=== PATIENT | female | born 1950 | race Caucasian/White ===

== ENCOUNTER 2016-08-11 12:33 | Inpatient (IN) | payer OTHER ==
[2016-08-11 12:57] LABS: AUTOMATED BASOPHIL 1.1 % (0-2); AUTOMATED EOSINOPHIL 0.9 % (0-5); AUTOMATED LYMPH 9.2 % (17-44); AUTOMATED MONOCYTE 6.7 % (3-10); AUTOMATED NEUTROPHIL 82.1 % (45-76); MPV 7.7 fL (7.4-10.4)
[2016-08-11 13:07] LABS: BLOOD UREA NITROGEN 20 MG/DL (7-17); CALC CORRECTED 9.6 MG/DL (8.4-10.2); CALCIUM 9.3 MG/DL (8.4-10.2); CALCULATED OSMOLALITY 268 MOs/Kg (270-290); CHLORIDE 96 mEq/L (98-107); GLUCOSE 120 MG/DL (70-99); SODIUM LEVEL 137 mEq/L (137-146); TOTAL PROTEIN 7.7 G/DL (6.3-8.2)
[2016-08-11] MEDS ORDERED: Albuterol/Ipratropium Neb 3 ML NEB NEB ONE (13:32)
--- NOTE | 2016-08-11 13:37 | EDPRACDOC ---
- General Information Chief Complaint: Dyspnea/Resp distress Stated Complaint: SENT BY DR RODAS Time Seen by Provider: 08/11/16 13:32 Information Source: Patient Mode Of Arrival: Car Home Medications: Home Medications Aspirin [Aspirin EC] 325 mg PO DAILY 08/11/16 Duloxetine [Cymbalta] 90 mg PO DAILY 08/11/16 Folic Acid 1 mg PO DAILY 08/11/16 Hydroxychloroquine Sulfate 200 mg PO BID 08/11/16 Methotrexate Sodium [Methotrexate] 7 tabs PO .WEEKLY 08/11/16 Telmisartan/Hydrochlorothiazid [Micardis Hct 80-12.5 mg Tablet] 1 each PO DAILY 08/11/16 Allergies/Adverse Reactions: Allergies Allergy/AdvReac Type Severity Reaction Status Date / Time cefaclor [From Ceclor] Allergy Hives* Verified 08/11/16 17:40 phenazopyridine Allergy Rash-Genera Verified 08/11/16 17:40 [From Pyridium] lized - History of Present Illness HPI: SENT FROM DR ÁLVAREZ OFFICE FOR SOB-COUGH, WHEEZE, RESPIRATORY FAILURE. , PT TREATED THERE WITH NEBS. OXYGEN SATS 84%, LINGULAR INFILTRATE ON CXR. CONCERN THAT MAY NEED ADMITTED IF BREATHING DOES NOT IMPROVE. COUGH, SOB MOSTLY WITH EXERTION X 3 WEEKS, WORSE SINCE SUNDAY. - Treatment Prior to ED Arrival Reported Medications/Treatment POLL CLERK Treated With Medication POLL CLERK YES Medications POLL CLERK (Medication/ ALB NEB X 2-POLL CLERK, DR ÁLVAREZ OFFICE Dose/Time) ED Past Medical History - Patient Medical History Cardiac History: Reports: Hypertension Systemic History: Reports: Cancer (SKIN) EDM Review of Systems - Review of Systems ROS Negative Except as Marked: Yes All systems reviewed and were negative except as marked Constitutional: Weakness Eyes: No Symptoms Reported Respiratory: Cough, Shortness of Breath Cardiovascular: No Symptoms Reported Gastrointestinal: No Symptoms Reported Genitourinary: No Symptoms Reported Neurological: No Symptoms Reported Musculoskeletal: No Symptoms Reported Integumentary: No Symptoms Reported Allergic/Immunologic: No Symptoms Reported Hematologic: No Symptoms Reported Endocrine: No Symptoms Reported - Physical Exam Constitutional: Alert (Awake), No apparent distress Oriented to: Time, Person, Place Last recorded Vital Signs: Last Vital Signs Temp 98.7 F 08/11/16 12:38 Pulse 94 08/11/16 12:38 Resp 24 08/11/16 12:38 BP 165/74 08/11/16 12:38 Pulse Ox 93 08/11/16 12:38 Oxygen Pulse Oxygen Saturation 93 O2 Device Oxygen Flow Rate Fraction of Inspired Oxygen ( FIO2) - HEENT Head: Normal ( normocephalic) Eye Exam: Normal (PERRL, EOMI, Sclera white) Oropharynx: Normal (Pharynx:Moist without exudate,Gums-no swelling) Nose: No Symptoms Reported (septum midline) Neck: Normal (FROM, trachea at midline) - Respiratory/Cardiovascular Respiratory: Wheezes (B/L) Cardiovascular: Normal (RRR without murmur, gallop or rub) - GI Auscultation: Normal (NABS) Palpation: Normal (Soft,No rebound or guarding, non distended) Tenderness: Non tender Hendrickson's Sign: Negative - Musculoskeletal Back: Normal (Non-Tender) Extremities: Normal (Normal tone, Pulses 2+ No cyanosis or edema, FROM) - Integumentary Skin: Normal, Warm, Dry Lymphatics: Normal (no adenopathy) - Neurologic Memory Impaired: Normal Motor Function: Normal (Normal tone, Pulses 2+ No cyanosis or edema, FROM) Cranial Nerve: Normal (CN II-X11 intact sensation, strength 5/5) Cerebellar: Normal Mood Description: Normal Perception: Normal ED SOB MDM - Results Result Diagrams: 08/12/16 06:54 08/12/16 06:54 Results: WBC 14.5 xk/uL (3.8-10.8) H 08/11/16 12:42 RBC 4.14 xM/uL (4.20-5.40) L 08/11/16 12:42 Hgb 12.5 g/dL (12.0-16.0) 08/11/16 12:42 Hct 38.0 % (36-47) 08/11/16 12:42 MCV 92 fL (81-99) 08/11/16 12:42 MCH 30.2 pg (27-32) 08/11/16 12:42 MCHC 32.8 g/dl (33-36) L 08/11/16 12:42 RDW 15.8 % (11.5-14.5) H 08/11/16 12:42 Plt Count 485 xk/uL (130-400) H 08/11/16 12:42 MPV 7.7 fL (7.4-10.4) 08/11/16 12:42 Neut % (Auto) 82.1 % (45-76) H 08/11/16 12:42 Lymph % (Auto) 9.2 % (17-44) L 08/11/16 12:42 [place] % (Auto) 6.7 % (3-10) 08/11/16 12:42 Eos % (Auto) 0.9 % (0-5) 08/11/16 12:42 Baso % (Auto) 1.1 % (0-2) 08/11/16 12:42 Absolute Neuts (auto) 11.89 xk/uL (1.7-8.2) H 08/11/16 12:42 Absolute Lymphs (auto) 1.31 xk/uL (0.65-4.75) 08/11/16 12:42 Sodium 137 mEq/L (137-146) 08/11/16 12:42 Potassium 3.6 mEq/L (3.5-5.1) 08/11/16 12:42 Chloride 96 mEq/L (98-107) L 08/11/16 12:42 Carbon Dioxide 30 mMOL/L (22-33) 08/11/16 12:42 Anion Gap 15 mEq/L (8-16) 08/11/16 12:42 BUN 20 MG/DL (7-17) H 08/11/16 12:42 Creatinine 0.90 MG/DL (0.52-1.04) 08/11/16 12:42 Estimated GFR (MDRD) > 60 mL/min (>=60) 08/11/16 12:42 Glucose 120 MG/DL (70-99) H 08/11/16 12:42 Calculated Osmolality 268 MOs/Kg (270-290) L 08/11/16 12:42 Calcium 9.3 MG/DL (8.4-10.2) 08/11/16 12:42 Corrected Calcium 9.6 MG/DL (8.4-10.2) 08/11/16 12:42 Total Bilirubin 1.1 MG/DL (0.2-1.3) 08/11/16 12:42 AST 34 IU/L (14-36) 08/11/16 12:42 ALT 35 IU/L (9-52) 08/11/16 12:42 Alkaline Phosphatase 102 IU/L (55-165) 08/11/16 12:42 Total Protein 7.7 G/DL (6.3-8.2) 08/11/16 12:42 Albumin 3.7 G/DL (3.5-5.0) 08/11/16 12:42 Lab Results 08/11/16 08/11/16 12:42 12:42 WBC 14.5 H RBC 4.14 L Hgb 12.5 Hct 38.0 MCV 92 MCH 30.2 MCHC 32.8 L RDW 15.8 H Plt Count 485 H MPV 7.7 Neut % (Auto) 82.1 H Lymph % (Auto) 9.2 L [place] % (Auto) 6.7 Eos % (Auto) 0.9 Baso % (Auto) 1.1 Absolute Neuts (auto) 11.89 H Absolute Lymphs (auto) 1.31 Sodium 137 Potassium 3.6 Chloride 96 L Carbon Dioxide 30 Anion Gap 15 BUN 20 H Creatinine 0.90 Estimated GFR (MDRD) > 60 Glucose 120 H Calculated Osmolality 268 L Calcium 9.3 Corrected Calcium 9.6 Total Bilirubin 1.1 AST 34 ALT 35 Alkaline Phosphatase 102 Total Protein 7.7 Albumin 3.7 - Departure Yes I personally saw and evaluated the patient. Disposition: Admit IP To This Hospital Condition: Stable Final Diagnosis: Pneumonia, Acute respiratory failure with hypoxia, Lingular pneumonia Decision to Admit Time: 14:46 Decision to admit date: 08/13/16 Decision to admit: from ED - Physician Consulted Hospitalist Time Called: 14:46 Provider Called: Lj Cordova Time Counting Machine Operator Returned Call: 14:46
[2016-08-11 13:59] LABS: ABG Draw Site Right Radial; ALLEN'S TEST PASS; BEb 4.1 (+/- 2); TCO2 29.8 MMOL/L (23-27)
[2016-08-11] MEDS ORDERED: Levofloxacin 750 mg/150 ml D5W 750 MG/150 ML RTU IV ONE (14:48)
--- NOTE | 2016-08-11 14:59 | DIRPT ---
CLINICAL DATA: Shortness of breath, cough EXAM: CHEST 2 VIEW COMPARISON: 08/11/2016 FINDINGS: Cardiomediastinal silhouette is stable. Dextroscoliosis mid thoracic spine again noted. Mild infrahilar bronchitic changes. Persistent infiltrate/ pneumonia in lingula and left base retrocardiac best seen on lateral view. IMPRESSION: Mild infrahilar bronchitic changes. Persistent infiltrate/ pneumonia in lingula and left base retrocardiac best seen on lateral view. Electronically Signed By: Omar Rasmussen M.D. On: 08/11/2016 14:57
[2016-08-11] MEDS ORDERED: IBUPROFEN 400 MG TAB PO PRN (16:23)
[2016-08-11] MEDS ORDERED: ONDANSETRON HCL 4 MG/2 ML VIAL IV PRN (16:23)
[2016-08-11] MEDS ORDERED: BISACODYL 5 MG TAB PO PRN (16:23)
[2016-08-11] MEDS ORDERED: PROMETHAZINE 25 MG/ML VIAL IV PRN (16:23)
[2016-08-11] MEDS ORDERED: TEMAZEPAM 15 MG CAP PO PRN (16:23)
[2016-08-11] MEDS ORDERED: Albuterol/Ipratropium Neb 3 ML NEB NEB PRN (16:23)
[2016-08-11] MEDS ORDERED: DOCUSATE-SENNA CONCENTRATE TAB PO PRN (16:23)
[2016-08-11] MEDS ORDERED: ACETAMINOPHEN 325 MG/TAB TABLET PO PRN (16:23)
[2016-08-11] MEDS ORDERED: SIMETHICONE 80 MG TAB PO PRN (16:23)
[2016-08-11] MEDS ORDERED: METHOTREXATE SODIUM PO SCH (16:30)
[2016-08-11] MEDS: NS 1,000 ML IV SCH (17:28)
[2016-08-11] MEDS ORDERED: Vaccine Screening Complete SCH (18:00)
[2016-08-11] MEDS: Albuterol/Ipratropium Neb 3 ML NEB NEB SCH (19:15)
[2016-08-11] MEDS: BUDESONIDE 0.25 MG NEB NEB SCH (19:17)
[2016-08-11] MEDS: TELMISARTAN 40 MG TAB PO SCH (19:21)
[2016-08-11] MEDS: DULOXETINE 30 MG CAP PO SCH (19:22)
[2016-08-11] MEDS: Aspirin (Orange Enteric Coated) 325 mg tab PO SCH (19:23)
[2016-08-11] MEDS: HYDROCHLOROTHIAZIDE 12.5 MG CAP PO SCH (19:24)
[2016-08-11] MEDS: FOLIC ACID 1 MG TAB PO SCH (19:24)
[2016-08-11] MEDS: HYDROXYCHLOROQUINE 200 MG TAB PO SCH (19:25)
[2016-08-11] MEDS: ENOXAPARIN 40 MG/0.4 ML PFS SQ SCH (20:01)
[2016-08-11] MEDS: METHOTREXATE SODIUM 2.5 MG TAB PO SCH (20:02)
[2016-08-12] MEDS: BENZONATATE 100 MG PERLES PO PRN ×2 (01:21→21:27)
[2016-08-12] MEDS: Albuterol/Ipratropium Neb 3 ML NEB NEB SCH ×4 (02:08→19:44)
[2016-08-12 07:29] LABS: AUTOMATED BASOPHIL 0.8 % (0-2); AUTOMATED EOSINOPHIL 1.5 % (0-5); AUTOMATED MONOCYTE 9.3 % (3-10); AUTOMATED NEUTROPHIL 75.4 % (45-76); MPV 7.7 fL (7.4-10.4)
[2016-08-12 08:11] LABS: BLOOD UREA NITROGEN 28 MG/DL (7-17); CALCULATED OSMOLALITY 272 MOs/Kg (270-290); CHLORIDE 98 mEq/L (98-107); GLUCOSE 101 MG/DL (70-99); SODIUM LEVEL 138 mEq/L (137-146)
[2016-08-12] MEDS: BUDESONIDE 0.25 MG NEB NEB SCH ×2 (08:22→19:43)
[2016-08-12] MEDS: FOLIC ACID 1 MG TAB PO SCH (08:42)
[2016-08-12] MEDS: Aspirin (Orange Enteric Coated) 325 mg tab PO SCH (08:42)
[2016-08-12] MEDS: HYDROXYCHLOROQUINE 200 MG TAB PO SCH ×2 (08:42→21:02)
[2016-08-12] MEDS: TELMISARTAN 40 MG TAB PO SCH (08:42)
[2016-08-12] MEDS: HYDROCHLOROTHIAZIDE 12.5 MG CAP PO SCH (08:42)
[2016-08-12] MEDS: DULOXETINE 30 MG CAP PO SCH (08:42)
[2016-08-12] MEDS: NS 1,000 ML IV SCH ×2 (13:42→13:56)
--- NOTE | 2016-08-12 14:59 | GENMEDPROG ---
Chief Complaint: Cough, pneumonia, hypoxia Subjective Note: Patient is feeling minimally better. She still has a very harsh cough. She did collect some sputum. She is short of breath moving around in her room. Current Medication List: Reviewed Currently: Reports: Cough, Wheezing, LIM, Tobacco Use/Hx, Ambulating (Minimally) . Denies: Nausea and Vomiting, Abdominal Pain, Fever/Chills DVT Prophylaxis: Yes - Physical Examination Vital Signs and I&O: Last Vital Signs Temp 98.3 F 08/12/16 14:00 Pulse 85 08/12/16 14:00 Resp 18 08/12/16 14:00 BP 120/60 08/12/16 14:00 Pulse Ox 92 08/12/16 14:00 Oxygen Pulse Oxygen Saturation 92 O2 Device Nasal Cannula Oxygen Flow Rate 2 Fraction of Inspired Oxygen ( FIO2) Intake & Output 08/09/16 08/10/16 08/11/16 08/12/16 23:59 23:59 23:59 23:59 Intake Total 470 1009 Output Total 200 700 Balance 270 309 Patient's weight 95.283 kg 96.218 kg General: Alert, Oriented x3, Cooperative, Mild distress (If speaking several sentences in a row) HEENT: Anicteric Sclera, Mucous membr. moist/pink Neck: Normal inspection, No Masses palpable Respiratory: Rhonchi (Faint rhonchi heard on the left), Wheezes, Excursion ( Decreased excursion but improved from yesterday) Cardiovascular: Regular rate and rhythm, No Gallops,Rubs/Murmurs, Good Pedal Pulses. negative: LE Edema GI: Soft, Non tender Extremities/Musculoskeletal: Normal pulses Neurological: Normal speech, Normal tone Psych/Mental Status: Appropriate, Normal Affect, Cooperative Lab/DI/Studies Reviewed: 08/12/16 06:54 08/12/16 06:54 Intake & Output 08/09/16 08/10/16 08/11/16 08/12/16 23:59 23:59 23:59 23:59 Intake Total 470 2007 Output Total 200 1100 Balance 270 907 Patient's weight 95.283 kg 96.218 kg - Assessment (1) Acute respiratory failure with hypoxia Acute J96.01 - ACUTE RESPIRATORY FAILURE WITH HYPOXIA Comment/Plan: Day 2 of IV Levaquin. Continue oxygen, inhaled steroids and inhaled bronchodilators. Will increase ambulation. (2) Lingular pneumonia Acute J18.9 - PNEUMONIA, UNSPECIFIED ORGANISM Comment/Plan: IV Levaquin, send sputum for culture, blood cultures, oxygen as needed (3) Rheumatoid arthritis Chronic M06.9 - RHEUMATOID ARTHRITIS, UNSPECIFIED Qualifiers: Rheumatoid arthritis location: multiple sites Comment/Plan: Continue outpatient medications. Will need to watch closely since she takes methotrexate and is immunosuppressed. She has had a flu and pneumonia vaccine (4) Anxiety Chronic F41.9 - ANXIETY DISORDER, UNSPECIFIED Comment/Plan: Continue outpatient medications Case Care Discussed with: Patient, Nursing Staff, Respiratory Therapy Education/Counseling Given To: Patient Education/Counseling Given Regarding: Diagnosis, Treatment Total Time: 35 minutes Critical Care: No Couseling Time (>50% in counseling/coordination): Yes Code: 26299 (12+)
[2016-08-12] MEDS: Levofloxacin 750 mg/150 ml D5W 750 MG/150 ML RTU IV SCH (15:15)
[2016-08-12] MEDS: ENOXAPARIN 40 MG/0.4 ML PFS SQ SCH (17:09)
[2016-08-12] MEDS: GUAIFEN 100 MG-DEXTROMETH 10 MG PER 5 ML PO SCH (23:07)
[2016-08-13] MEDS: Albuterol/Ipratropium Neb 3 ML NEB NEB SCH ×4 (01:44→20:03)
[2016-08-13] MEDS: GUAIFEN 100 MG-DEXTROMETH 10 MG PER 5 ML PO SCH ×3 (04:50→17:48)
[2016-08-13] MEDS: BUDESONIDE 0.25 MG NEB NEB SCH ×2 (08:03→20:07)
[2016-08-13] MEDS: HYDROXYCHLOROQUINE 200 MG TAB PO SCH ×2 (08:23→21:12)
[2016-08-13] MEDS: HYDROCHLOROTHIAZIDE 12.5 MG CAP PO SCH (08:23)
[2016-08-13] MEDS: FOLIC ACID 1 MG TAB PO SCH (08:23)
[2016-08-13] MEDS: TELMISARTAN 40 MG TAB PO SCH (08:23)
[2016-08-13] MEDS: Aspirin (Orange Enteric Coated) 325 mg tab PO SCH (08:23)
[2016-08-13] MEDS: DULOXETINE 30 MG CAP PO SCH (08:23)
--- NOTE | 2016-08-13 09:05 | GENMEDPROG ---
Subjective Note: Patient is feeling a little bit better. She was able to wean down this morning to 1 L of oxygen. She is still coughing but less often. She was able to sleep a little bit better. Appetite is good. No fever or chills. She is ambulating in her room. Currently: Reports: Cough, Wheezing, LIM (improved slightly), Tobacco Use/Hx, Ambulating (Minimally). Denies: Nausea and Vomiting, Abdominal Pain, Fever/ Chills DVT Prophylaxis: Yes - Physical Examination Vital Signs and I&O: Last Vital Signs Temp 98.1 F 08/13/16 06:31 Pulse 96 08/13/16 06:31 Resp 18 08/13/16 06:31 BP 142/67 08/13/16 06:31 Pulse Ox 93 08/13/16 06:31 Oxygen Pulse Oxygen Saturation 93 O2 Device Nasal Cannula Oxygen Flow Rate 1 Fraction of Inspired Oxygen ( FIO2) Intake & Output 08/10/16 08/11/16 08/12/16 08/13/16 23:59 23:59 23:59 23:59 Intake Total 470 2007 581 Output Total 200 1400 400 Balance 270 607 181 Patient's weight 95.283 kg 96.218 kg 96.615 kg General: Alert, Oriented x3, Cooperative, Mild distress (with cough), Obese HEENT: Mucous membr. moist/pink. negative: Anicteric Sclera Neck: Non-tender. negative: Cervical Adenopathy Lymphatics: Normal (no adenopathy) Respiratory: Wheezes (B/L), Excursion (decreased excursion) Cardiovascular: Regular rate and rhythm, Good Pedal Pulses. negative: LE Edema GI: Normal bowel sounds, Soft, Non tender Extremities/Musculoskeletal: Normal pulses. negative: Edema Skin: Warm,Dry and Intact Neurological: Normal speech, Normal tone Psych/Mental Status: Appropriate, Normal Affect, Cooperative - Assessment (1) Acute respiratory failure with hypoxia Acute J96.01 - ACUTE RESPIRATORY FAILURE WITH HYPOXIA Comment/Plan: Day 3 of IV Levaquin. Continue oxygen, inhaled steroids and inhaled bronchodilators. Will increase ambulation. is slowly improving. (2) Lingular pneumonia Acute J18.9 - PNEUMONIA, UNSPECIFIED ORGANISM Comment/Plan: Will need 10 days of antibiotics and follow up CVR for resolution. (3) Rheumatoid arthritis Chronic M06.9 - RHEUMATOID ARTHRITIS, UNSPECIFIED Qualifiers: Rheumatoid arthritis location: multiple sites Comment/Plan: Continue outpatient medications. Will need to watch closely since she takes methotrexate and is immunosuppressed. She has had a flu and pneumonia vaccine (4) Anxiety Chronic F41.9 - ANXIETY DISORDER, UNSPECIFIED Comment/Plan: Continue outpatient medications Case Care Discussed with: Patient, Nursing Staff Education/Counseling Given To: Patient Education/Counseling Given Regarding: Diagnosis, Treatment, Prognosis Total Time: 30 min Critical Care: No Couseling Time (>50% in counseling/coordination): Yes Code: 50874 (12+)
[2016-08-13] MEDS: NS 1,000 ML IV SCH ×2 (11:12→15:36)
[2016-08-13] MEDS: Levofloxacin 750 mg/150 ml D5W 750 MG/150 ML RTU IV SCH (15:34)
[2016-08-13] MEDS: ENOXAPARIN 40 MG/0.4 ML PFS SQ SCH (17:48)
[2016-08-14] MEDS: GUAIFEN 100 MG-DEXTROMETH 10 MG PER 5 ML PO SCH ×4 (00:39→17:20)
[2016-08-14] MEDS: Albuterol/Ipratropium Neb 3 ML NEB NEB SCH ×4 (01:34→19:50)
[2016-08-14] MEDS: BUDESONIDE 0.25 MG NEB NEB SCH ×2 (07:51→19:53)
[2016-08-14] MEDS: NS 1,000 ML IV SCH ×2 (08:55→15:19)
[2016-08-14] MEDS: DULOXETINE 30 MG CAP PO SCH (09:05)
[2016-08-14] MEDS: TELMISARTAN 40 MG TAB PO SCH (09:05)
[2016-08-14] MEDS: HYDROXYCHLOROQUINE 200 MG TAB PO SCH ×2 (09:05→21:21)
[2016-08-14] MEDS: HYDROCHLOROTHIAZIDE 12.5 MG CAP PO SCH (09:06)
[2016-08-14] MEDS: Aspirin (Orange Enteric Coated) 325 mg tab PO SCH (09:06)
[2016-08-14] MEDS: FOLIC ACID 1 MG TAB PO SCH (09:06)
[2016-08-14] MEDS: Levofloxacin 750 mg/150 ml D5W 750 MG/150 ML RTU IV SCH (15:18)
--- NOTE | 2016-08-14 16:17 | GENMEDPROG ---
Subjective Note: 66-year-old female who uses no home oxygen still quite hypoxemic with any change in position. Today her sats dropped to 85% with 2 steps. Notes Reviewed: Yes Events from last night noted and discussed with Clinical Staff Current Medication List: Reviewed Currently: Reports: Cough, Wheezing, LIM (improved slightly), Tobacco Use/Hx, Ambulating (Minimally). Denies: Nausea and Vomiting, Abdominal Pain, Fever/ Chills DVT Prophylaxis: Yes - Physical Examination Vital Signs and I&O: Last Vital Signs Temp 98.5 F 08/14/16 14:00 Pulse 87 08/14/16 14:00 Resp 19 08/14/16 14:00 BP 127/57 L 08/14/16 14:00 Pulse Ox 95 08/14/16 15:12 Oxygen Pulse Oxygen Saturation 95 O2 Device Nasal Cannula Oxygen Flow Rate 2 Fraction of Inspired Oxygen ( FIO2) Intake & Output 08/11/16 08/12/16 08/13/16 08/14/16 23:59 23:59 23:59 23:59 Intake Total 470 2007 2036 1200 Output Total 200 1400 1750 1050 Balance 270 607 286 150 Patient's weight 95.283 kg 96.218 kg 96.615 kg 97.636 kg General: Alert, Oriented x3, Cooperative, Mild distress (with cough), Obese HEENT: Mucous membr. moist/pink. negative: Anicteric Sclera Neck: Non-tender. negative: Cervical Adenopathy Lymphatics: Normal (no adenopathy) Respiratory: Wheezes (B/L), Excursion (decreased excursion) Cardiovascular: Regular rate and rhythm, Good Pedal Pulses. negative: LE Edema GI: Normal bowel sounds, Soft, Non tender Extremities/Musculoskeletal: Normal pulses. negative: Edema Skin: Warm,Dry and Intact Neurological: Normal speech, Normal tone Psych/Mental Status: Appropriate, Normal Affect, Cooperative - Assessment (1) Acute respiratory failure with hypoxia Acute J96.01 - ACUTE RESPIRATORY FAILURE WITH HYPOXIA Comment/Plan: Day 4 of IV Levaquin. Continue oxygen, inhaled steroids and inhaled bronchodilators. Patient is saturating very easily. Would encourage movement out of bed but limited ambulation (2) Lingular pneumonia Acute J18.9 - PNEUMONIA, UNSPECIFIED ORGANISM Comment/Plan: Will need 10 days of antibiotics and follow up CVR for resolution. (3) Rheumatoid arthritis Chronic M06.9 - RHEUMATOID ARTHRITIS, UNSPECIFIED Qualifiers: Rheumatoid arthritis location: multiple sites Comment/Plan: Continue outpatient medications. Will need to watch closely since she takes methotrexate and is immunosuppressed. She has had a flu and pneumonia vaccine (4) Anxiety Chronic F41.9 - ANXIETY DISORDER, UNSPECIFIED Comment/Plan: Continue outpatient medications - Plan Hopefully home when able to keep sats greater than 88% Disposition Plan: Home Case Care Discussed with: Patient, Consultants Education/Counseling Given To: Patient, Family Member Education/Counseling Given Regarding: Diagnosis, Treatment, Prognosis, Follow Up , Disposition Plan Total Time: 35 minutes Critical Care: No Couseling Time (>50% in counseling/coordination): No
[2016-08-14] MEDS: ENOXAPARIN 40 MG/0.4 ML PFS SQ SCH (17:20)
[2016-08-15] MEDS: GUAIFEN 100 MG-DEXTROMETH 10 MG PER 5 ML PO SCH ×5 (00:28→23:09)
[2016-08-15] MEDS: Albuterol/Ipratropium Neb 3 ML NEB NEB SCH ×4 (02:00→19:40)
[2016-08-15] MEDS: NS 1,000 ML IV SCH (05:20)
[2016-08-15] MEDS: BUDESONIDE 0.25 MG NEB NEB SCH ×2 (08:01→19:40)
[2016-08-15] MEDS ORDERED: FUROSEMIDE 40 MG/4 ML VIAL IV ONE (08:30)
[2016-08-15] MEDS: TELMISARTAN 40 MG TAB PO SCH (09:18)
[2016-08-15] MEDS: HYDROCHLOROTHIAZIDE 12.5 MG CAP PO SCH (09:19)
[2016-08-15] MEDS: FOLIC ACID 1 MG TAB PO SCH (09:19)
[2016-08-15] MEDS: Aspirin (Orange Enteric Coated) 325 mg tab PO SCH (09:19)
[2016-08-15] MEDS: HYDROXYCHLOROQUINE 200 MG TAB PO SCH ×2 (09:19→23:09)
[2016-08-15] MEDS: DULOXETINE 30 MG CAP PO SCH (09:19)
--- NOTE | 2016-08-15 10:25 | DIRPT ---
CLINICAL DATA: Congestion. Pneumonia. EXAM: PORTABLE CHEST 1 VIEW COMPARISON: 08/11/2016. FINDINGS: Mediastinum hilar structures stable. Heart size stable. Partial clearing of left base infiltrate. No pleural effusion or pneumothorax. Thoracic spine scoliosis and degenerative change. IMPRESSION: Partial clearing of left base infiltrate Electronically Signed By: Sloan Garcia On: 08/15/2016 10:22
--- NOTE | 2016-08-15 13:23 | HISTPHYS ---
- Chief Complaint Shortness of breath - History of Present Illness Patient is a 66-year-old white female with a history of frequent bronchitis who was in her usual state of health until about 3 weeks ago when she developed some cough. She denied any wheezing initially and had mild URI symptoms. She had some low-grade fevers. Cough was productive of some white phlegm. Until several days ago the patient was able to walk her dog 5 times a day and continue her usual activities. Over the last 5 days she has developed increased chest tightness and dyspnea with exertion. Her cough is becoming more productive. The only medication she has tried is Mucinex. She does not normally use inhalers or nebulizers. She presented to her primary care office and saw Dr. Ireland. Her initial oxygen saturations were about 93. She was quite short of breath and received 2 breathing treatments. Over the course of her time in the office her oxygen saturations actually decreased. She had a chest x -ray which showed a lingular pneumonia. She is being admitted for treatment of the pneumonia and hypoxemia. - Medical History Cardiac History: Reports: Hypertension. Denies: Coronary Artery Disease, Congestive Heart Failure, Hypercholesterolemia Respiratory History: Reports: Bronchitis GI/ History: Reports: No Significant History Musculoskeletal History: Reports: Rheumatoid Arthritis Systemic History: Reports: No Significant History Neurological History: Reports: No Significant History Psychological History: Reports: Depression, Anxiety - Surgical History Reports: Other (Left knee surgery in 1994, cataract surgery, carpal tunnel repair bilateral) - Medictions/Allergies Allergies cefaclor [From Ceclor] Allergy (Verified 08/11/16 17:40) Hives* phenazopyridine [From Pyridium] Allergy (Verified 08/11/16 17:40) Rash-Generalized Current Medication List: Reviewed Home Medications Aspirin [Aspirin EC] 325 mg PO DAILY 08/11/16 Duloxetine [Cymbalta] 90 mg PO DAILY 08/11/16 Folic Acid 1 mg PO DAILY 08/11/16 Hydroxychloroquine Sulfate 200 mg PO BID 08/11/16 Methotrexate Sodium [Methotrexate] 7 tabs PO .WEEKLY 08/11/16 Telmisartan/Hydrochlorothiazid [Micardis Hct 80-12.5 mg Tablet] 1 each PO DAILY 08/11/16 - Family History Reports: Cardiac Disorders (mother), Other (Father of rheumatoid arthritis complications) - Social History Travel Outside of [place] in the Last 3 Months?: No Lives: Alone Smoking Status: Former smoker (Quit in 2006.) Social History: Denies: Barbiturate Use, Benzodiazipine Use - Review of Systems Constitutional: Fever (Low-grade), Fatigue Eyes: No Symptoms Reported Ears: No Symptoms Reported Nose: Congestion (Minimal nasal congestion) Mouth: No Symptoms Reported Throat/Neck: No Symptoms Reported Respiratory: Cough (Largely nonproductive) Cardiovascular: negative: Chest Pain, Edema, Palpitations, Syncope Gastrointestinal: negative: Nausea, Vomiting, Abdominal Pain, Diarrhea Genitourinary: negative: Bleeding, Frequency, Hematuria Neurological: negative: Dizziness, Headache Musculoskeletal:: Joint Swelling (Chronic knee pain related to RA) Integumentary: No Symptoms Reported Allergic/Immunologic: No Symptoms Reported Hematologic: No Symptoms Reported Endocrine: No Symptoms Reported - Physical Exam Vital Signs: Initial Vitals Temperature 98.7 F 08/11/16 12:38 Pulse Rate 94 08/11/16 12:38 Respiratory Rate 24 08/11/16 12:38 Blood Pressure 165/74 08/11/16 12:38 Pulse Oxygen Saturation 93 08/11/16 12:38 Constitutional: Alert, Well nourished, Other (Mild respiratory distress after speaking full sentences) Oriented to: Time, Person, Place - HEENT Head: Normal Eye: Normal. negative: Conjunctival Injection Oropharynx: Normal Tympanic Membrane: Normal ENT EAC: Normal Nose: Discharge (Mild clear discharge) Respiratory: Rhonchi (Faint rhonchi heard on the left), Wheezes, Excursion ( Decreased excursion) Cardiovascular: Normal - GI Auscultation: Normal Palpation: Normal Tenderness: Non tender. negative: Guarding Rectal Exam: Deferred - Musculoskeletal Back: Normal Extremities: Normal, Pedal Pulse (Normal). negative: Edema Spine: non-tender - Integumentary Skin: Normal, Warm, Dry Lymphatics: Normal - Neurologic Memory Impaired: Normal Motor Function: Normal Cranial Nerve: Normal Cerebellar: Normal Mood Description: Normal Thought: Coherent Perception: Normal - Focused CV Perfusion Exam Vital Signs: Last Vital Signs Temp 98.6 F 08/11/16 17:20 Pulse 97 08/11/16 17:20 Resp 18 08/11/16 17:20 BP 131/60 08/11/16 17:20 Pulse Ox 91 08/11/16 17:20 - Lab Results Laboratory Results - last 24 hr 08/11/16 08/11/16 08/11/16 12:42 12:42 13:55 WBC 14.5 H RBC 4.14 L Hgb 12.5 Hct 38.0 MCV 92 MCH 30.2 MCHC 32.8 L RDW 15.8 H Plt Count 485 H MPV 7.7 Neut % (Auto) 82.1 H Lymph % (Auto) 9.2 L [place] % (Auto) 6.7 Eos % (Auto) 0.9 Baso % (Auto) 1.1 Absolute Neuts (auto) 11.89 H Absolute Lymphs (auto) 1.31 Puncture Site Right radial pH 7.450 pCO2 41.0 pO2 54.0 L HCO3 28.5 H Total CO2 29.8 H Base Excess 4.1 H FiO2 % Room air Specimen Drawn By Gerald Sodium 137 Potassium 3.6 Chloride 96 L Carbon Dioxide 30 Anion Gap 15 BUN 20 H Creatinine 0.90 Estimated GFR (MDRD) > 60 Glucose 120 H Calculated Osmolality 268 L Calcium 9.3 Corrected Calcium 9.6 Total Bilirubin 1.1 AST 34 ALT 35 Alkaline Phosphatase 102 Total Protein 7.7 Albumin 3.7 - Diagnostic Findings Exam(s): [id number] RAD/DG CHEST 2V CLINICAL DATA: Shortness of breath, cough EXAM: CHEST 2 VIEW COMPARISON: 08/11/2016 FINDINGS: Cardiomediastinal silhouette is stable. Dextroscoliosis mid thoracic spine again noted. Mild infrahilar bronchitic changes. Persistent infiltrate/ pneumonia in lingula and left base retrocardiac best seen on lateral view. IMPRESSION: Mild infrahilar bronchitic changes. Persistent infiltrate/ pneumonia in lingula and left base retrocardiac best seen on lateral view. Electronically Signed By: Omar Rasmussen M.D. On: 08/11/2016 14:57 - Assessment (1) Acute respiratory failure with hypoxia J96.01 - ACUTE RESPIRATORY FAILURE WITH HYPOXIA Acute Present on Admission: Yes Oxygen to see keep sats greater than 92. IV Levaquin will be used since the patient is allergic to Ceclor prohibiting Rocephin use. Frequent nebs. The patient he does not like the way prednisone has made her feel in the past and so we will try inhaled steroids instead. (2) Lingular pneumonia J18.9 - PNEUMONIA, UNSPECIFIED ORGANISM Acute Present on Admission: Yes IV Levaquin, send sputum for culture, blood cultures, oxygen as needed (3) Rheumatoid arthritis M06.9 - RHEUMATOID ARTHRITIS, UNSPECIFIED Chronic Present on Admission: Yes Qualifiers: Rheumatoid arthritis location: multiple sites Continue outpatient medications. Will need to watch closely since she takes methotrexate and is immunosuppressed. She has had a flu and pneumonia vaccine (4) Anxiety F41.9 - ANXIETY DISORDER, UNSPECIFIED Chronic Present on Admission: Yes Continue outpatient medications Case Care Discussed with: Patient, Nursing Staff Total Time: 45 minutes Critical Care: No Code: 80641 <Electronically signed by Linda Fagan MD> 08/11/16 2142 MTDD
[2016-08-15] MEDS: Levofloxacin 750 mg/150 ml D5W 750 MG/150 ML RTU IV SCH (17:14)
[2016-08-15] MEDS: ENOXAPARIN 40 MG/0.4 ML PFS SQ SCH (17:14)
--- NOTE | 2016-08-15 17:22 | GENMEDPROG ---
Subjective Note: amb O2 sat dropped to 81% today Patient feeling still very weak still very tight. She is improving only very slowly. Notes Reviewed: Yes Events from last night noted and discussed with Clinical Staff Current Medication List: Reviewed Currently: Reports: Cough, Wheezing, LIM (improved slightly), Tobacco Use/Hx, Ambulating (Minimally). Denies: Nausea and Vomiting, Abdominal Pain, Fever/ Chills DVT Prophylaxis: Yes - Physical Examination Vital Signs and I&O: Last Vital Signs Temp 97.5 F 08/15/16 14:29 Pulse 84 08/15/16 15:02 Resp 17 08/15/16 15:02 BP 111/51 L 08/15/16 14:29 Pulse Ox 94 08/15/16 15:02 Oxygen Pulse Oxygen Saturation 94 O2 Device Nasal Cannula Oxygen Flow Rate 2 Fraction of Inspired Oxygen ( FIO2) Intake & Output 08/12/16 08/13/16 08/14/16 08/15/16 23:59 23:59 23:59 23:59 Intake Total 2006 2035 1496 1077 Output Total 1400 1750 1500 3000 Balance 296 484 -9 -8588 Patient's weight 96.218 kg 96.615 kg 97.636 kg 98.883 kg General: Alert, Oriented x3, Cooperative, Mild distress (with cough), Obese HEENT: Mucous membr. moist/pink. negative: Anicteric Sclera Neck: Non-tender. negative: Cervical Adenopathy Lymphatics: Normal (no adenopathy) Respiratory: Wheezes (B/L), Excursion (decreased excursion) Cardiovascular: Regular rate and rhythm, Good Pedal Pulses. negative: LE Edema GI: Normal bowel sounds, Soft, Non tender Extremities/Musculoskeletal: Normal pulses. negative: Edema Skin: Warm,Dry and Intact Neurological: Normal speech, Normal tone Psych/Mental Status: Appropriate, Normal Affect, Cooperative Lab/DI/Studies Reviewed: PORTABLE CHEST 1 VIEW COMPARISON: 08/11/2016. FINDINGS: Mediastinum hilar structures stable. Heart size stable. Partial clearing of left base infiltrate. No pleural effusion or pneumothorax. Thoracic spine scoliosis and degenerative change. IMPRESSION: Partial clearing of left base infiltrate Electronically Signed By: Sloan Garcia On: 08/15/2016 10:22 - Assessment (1) Acute respiratory failure with hypoxia Acute J96.01 - ACUTE RESPIRATORY FAILURE WITH HYPOXIA Comment/Plan: Day 5 of IV Levaquin continue oxygen inhaled steroids and bronchodilators. She desaturates very easily. Continue with limited ambulation given her sats dropped again today. Will give some diuresis as well. (2) Lingular pneumonia Acute J18.9 - PNEUMONIA, UNSPECIFIED ORGANISM Comment/Plan: Will need 10 days of antibiotics and follow up CVR for resolution. (3) Rheumatoid arthritis Chronic M06.9 - RHEUMATOID ARTHRITIS, UNSPECIFIED Qualifiers: Rheumatoid arthritis location: multiple sites Comment/Plan: Continue outpatient medications. Will need to watch closely since she takes methotrexate and is immunosuppressed. She has had a flu and pneumonia vaccine (4) Anxiety Chronic F41.9 - ANXIETY DISORDER, UNSPECIFIED Comment/Plan: Continue outpatient medications - Plan Hopefully home when able to keep sats greater than 88% Disposition Plan: Home Case Care Discussed with: Patient, Nursing Staff Education/Counseling Given To: Patient Education/Counseling Given Regarding: Diagnosis, Treatment, Prognosis, Follow Up , Disposition Plan Total Time: 45 minutes Critical Care: No Couseling Time (>50% in counseling/coordination): No
[2016-08-16] MEDS: Albuterol/Ipratropium Neb 3 ML NEB NEB SCH ×4 (01:51→20:00)
[2016-08-16] MEDS: GUAIFEN 100 MG-DEXTROMETH 10 MG PER 5 ML PO SCH ×3 (05:22→17:02)
[2016-08-16 07:28] LABS: AUTOMATED BASOPHIL 0.7 % (0-2); AUTOMATED EOSINOPHIL 3.6 % (0-5); AUTOMATED LYMPH 19.2 % (17-44); AUTOMATED MONOCYTE 7.2 % (3-10); AUTOMATED NEUTROPHIL 69.3 % (45-76); MPV 7.6 fL (7.4-10.4)
[2016-08-16 07:44] LABS: BLOOD UREA NITROGEN 24 MG/DL (7-17); CALCIUM 8.8 MG/DL (8.4-10.2); CALCULATED OSMOLALITY 272 MOs/Kg (270-290); CHLORIDE 99 mEq/L (98-107); GLUCOSE 105 MG/DL (70-99); SODIUM LEVEL 139 mEq/L (137-146)
[2016-08-16] MEDS: DULOXETINE 30 MG CAP PO SCH (08:03)
[2016-08-16] MEDS: FOLIC ACID 1 MG TAB PO SCH (08:04)
[2016-08-16] MEDS: TELMISARTAN 40 MG TAB PO SCH (08:04)
[2016-08-16] MEDS: HYDROXYCHLOROQUINE 200 MG TAB PO SCH ×2 (08:04→22:36)
[2016-08-16] MEDS: Aspirin (Orange Enteric Coated) 325 mg tab PO SCH (08:04)
[2016-08-16] MEDS: HYDROCHLOROTHIAZIDE 12.5 MG CAP PO SCH (08:04)
[2016-08-16] MEDS: BUDESONIDE 0.25 MG NEB NEB SCH ×2 (09:44→20:00)
[2016-08-16] MEDS: LEVOFLOXACIN 750 MG TAB PO SCH (16:10)
--- NOTE | 2016-08-16 16:16 | GENMEDPROG ---
Subjective Note: Patient still doing poorly feels very weak whenever she moves about in the bed. Notes Reviewed: Yes Events from last night noted and discussed with Clinical Staff Current Medication List: Reviewed Currently: Reports: Cough, Wheezing, LIM (improved slightly), Tobacco Use/Hx, Ambulating (Minimally). Denies: Nausea and Vomiting, Abdominal Pain, Fever/ Chills DVT Prophylaxis: Yes - Physical Examination Vital Signs and I&O: Last Vital Signs Temp 97.7 F 08/16/16 13:44 Pulse 88 08/16/16 13:44 Resp 20 08/16/16 13:44 BP 112/71 08/16/16 13:44 Pulse Ox 92 08/16/16 13:44 Oxygen Pulse Oxygen Saturation 92 O2 Device Nasal Cannula Oxygen Flow Rate 1.5 Fraction of Inspired Oxygen ( FIO2) Intake & Output 08/13/16 08/14/16 08/15/16 08/16/16 23:59 23:59 23:59 23:59 Intake Total 2036 1496 2024 780 Output Total 1750 1500 4150 950 Balance 286 -4 -2126 -170 Patient's weight 96.615 kg 97.636 kg 98.883 kg 98.203 kg General: Alert, Oriented x3, Cooperative, Mild distress (with cough), Obese HEENT: Mucous membr. moist/pink. negative: Anicteric Sclera Neck: Non-tender. negative: Cervical Adenopathy Lymphatics: Normal (no adenopathy) Respiratory: Wheezes (B/L), Excursion (decreased excursion) Cardiovascular: Regular rate and rhythm, Good Pedal Pulses. negative: LE Edema GI: Normal bowel sounds, Soft, Non tender Extremities/Musculoskeletal: Normal pulses. negative: Edema Skin: Warm,Dry and Intact Neurological: Normal speech, Normal tone Psych/Mental Status: Appropriate, Normal Affect, Cooperative Lab/DI/Studies Reviewed: Laboratory Results - last 24 hr 08/16/16 08/16/16 06:33 06:33 WBC 8.5 RBC 3.38 L Hgb 10.7 L Hct 31.5 L MCV 93 MCH 31.7 MCHC 34.0 RDW 15.5 H Plt Count 401 H MPV 7.6 Neut % (Auto) 69.3 Lymph % (Auto) 19.2 [place] % (Auto) 7.2 Eos % (Auto) 3.6 Baso % (Auto) 0.7 Absolute Neuts (auto) 5.87 Absolute Lymphs (auto) 1.62 Sodium 139 Potassium 4.0 Chloride 99 Carbon Dioxide 33 Anion Gap 11 BUN 24 H Creatinine 0.70 Estimated GFR (MDRD) > 60 Glucose 105 H Calculated Osmolality 272 Calcium 8.8 Magnesium 2.00 - Assessment (1) Acute respiratory failure with hypoxia Acute J96.01 - ACUTE RESPIRATORY FAILURE WITH HYPOXIA Comment/Plan: Day 6 of IV Levaquin. Continue steroids bronchodilators. Continue consultation with Dr. Laura which has been very helpful. Patient remains very debilitated. (2) Lingular pneumonia Acute J18.9 - PNEUMONIA, UNSPECIFIED ORGANISM Comment/Plan: Chest x-ray obtained yesterday showed partial clearing of left base will continue present care. (3) Rheumatoid arthritis Chronic M06.9 - RHEUMATOID ARTHRITIS, UNSPECIFIED Qualifiers: Rheumatoid arthritis location: multiple sites Comment/Plan: Continue outpatient medications. Will need to watch closely since she takes methotrexate and is immunosuppressed. She has had a flu and pneumonia vaccine (4) Anxiety Chronic F41.9 - ANXIETY DISORDER, UNSPECIFIED Comment/Plan: Continue outpatient medications - Plan Hopefully home when able to keep sats greater than 88% Disposition Plan: Home Case Care Discussed with: Patient, Consultants (Dr. Laura), Nursing Staff Education/Counseling Given To: Patient Education/Counseling Given Regarding: Diagnosis, Treatment, Prognosis, Follow Up , Disposition Plan Total Time: 45 minutes Critical Care: No Couseling Time (>50% in counseling/coordination): No
[2016-08-16] MEDS: ENOXAPARIN 40 MG/0.4 ML PFS SQ SCH (17:01)
[2016-08-16] MEDS: FUROSEMIDE 40 MG/4 ML VIAL IV SCH (17:01)
[2016-08-16] MEDS: TUSSIONEX 5 ML ORAL SYRINGE PO SCH (22:36)
[2016-08-17] MEDS: GUAIFEN 100 MG-DEXTROMETH 10 MG PER 5 ML PO SCH ×5 (00:56→23:23)
[2016-08-17] MEDS: Albuterol/Ipratropium Neb 3 ML NEB NEB SCH ×4 (01:54→20:24)
[2016-08-17 07:39] LABS: AUTOMATED BASOPHIL 0.8 % (0-2); AUTOMATED EOSINOPHIL 3.9 % (0-5); AUTOMATED MONOCYTE 9.1 % (3-10); AUTOMATED NEUTROPHIL 67.2 % (45-76); MPV 7.4 fL (7.4-10.4)
[2016-08-17 07:57] LABS: BLOOD UREA NITROGEN 27 MG/DL (7-17); CALCIUM 9.1 MG/DL (8.4-10.2); CALCULATED OSMOLALITY 271 MOs/Kg (270-290); CHLORIDE 96 mEq/L (98-107); GLUCOSE 103 MG/DL (70-99); SODIUM LEVEL 138 mEq/L (137-146)
[2016-08-17] MEDS: TUSSIONEX 5 ML ORAL SYRINGE PO SCH ×2 (08:38→20:48)
[2016-08-17] MEDS: Aspirin (Orange Enteric Coated) 325 mg tab PO SCH (08:38)
[2016-08-17] MEDS: HYDROCHLOROTHIAZIDE 12.5 MG CAP PO SCH (08:38)
[2016-08-17] MEDS: FUROSEMIDE 40 MG/4 ML VIAL IV SCH ×2 (08:38→17:04)
[2016-08-17] MEDS: HYDROXYCHLOROQUINE 200 MG TAB PO SCH ×2 (08:38→20:49)
[2016-08-17] MEDS: FOLIC ACID 1 MG TAB PO SCH (08:38)
[2016-08-17] MEDS: TELMISARTAN 40 MG TAB PO SCH (08:38)
[2016-08-17] MEDS: DULOXETINE 30 MG CAP PO SCH (08:38)
[2016-08-17] MEDS: BUDESONIDE 0.25 MG NEB NEB SCH ×2 (08:53→20:26)
[2016-08-17] MEDS: LEVOFLOXACIN 750 MG TAB PO SCH (17:04)
[2016-08-17] MEDS: ENOXAPARIN 40 MG/0.4 ML PFS SQ SCH (17:04)
--- NOTE | 2016-08-17 17:24 | GENMEDPROG ---
Subjective Note: Patient starting to look a little bit better. Still very hypoxemic with activity. Currently: Reports: Cough, Wheezing, LIM (improved slightly), Tobacco Use/Hx, Ambulating (Minimally). Denies: Nausea and Vomiting, Abdominal Pain, Fever/ Chills DVT Prophylaxis: Yes - Physical Examination Vital Signs and I&O: Last Vital Signs Temp 97.9 F 08/17/16 13:21 Pulse 75 08/17/16 13:21 Resp 20 08/17/16 13:21 BP 134/58 L 08/17/16 13:21 Pulse Ox 94 08/17/16 13:21 Oxygen Pulse Oxygen Saturation 94 O2 Device Nasal Cannula Oxygen Flow Rate 2 Fraction of Inspired Oxygen ( FIO2) Intake & Output 08/14/16 08/15/16 08/16/16 08/17/16 23:59 23:59 23:59 23:59 Intake Total 1496 2024 1080 350 Output Total 1500 4150 2150 1700 Balance -4 -2126 -1070 -1360 Patient's weight 97.636 kg 98.883 kg 98.203 kg 97.664 kg General: Alert, Oriented x3, Cooperative, Mild distress (with cough), Obese HEENT: Mucous membr. moist/pink. negative: Anicteric Sclera Neck: Non-tender. negative: Cervical Adenopathy Lymphatics: Normal (no adenopathy) Respiratory: Diminished, Wheezes (B/L), Excursion (decreased excursion) Cardiovascular: Regular rate and rhythm, Good Pedal Pulses. negative: LE Edema GI: Normal bowel sounds, Soft, Non tender Extremities/Musculoskeletal: Normal pulses. negative: Edema Skin: Warm,Dry and Intact Neurological: Normal speech, Normal tone Psych/Mental Status: Appropriate, Normal Affect, Cooperative Lab/DI/Studies Reviewed: Abnormal Lab Results 08/16/16 08/17/16 08/17/16 20:00 06:53 06:53 RBC 3.44 L Hgb 10.8 L Hct 31.6 L RDW 15.9 H Chloride 96 L Carbon Dioxide 34 H BUN 27 H Glucose 103 H POC Capillary Glucose 100 H - Assessment (1) Acute respiratory failure with hypoxia Acute J96.01 - ACUTE RESPIRATORY FAILURE WITH HYPOXIA Comment/Plan: Day 7 of IV Levaquin. Continue steroids bronchodilators. Continue consultation with Dr. Laura which has been very helpful. Patient remains very debilitated. Will likely require 10 days of treatment with Levaquin. (2) Lingular pneumonia Acute J18.9 - PNEUMONIA, UNSPECIFIED ORGANISM Comment/Plan: Chest x-ray obtained 2 days ago showed partial clearing of left base will continue present care. (3) Rheumatoid arthritis Chronic M06.9 - RHEUMATOID ARTHRITIS, UNSPECIFIED Qualifiers: Rheumatoid arthritis location: multiple sites Comment/Plan: Continue outpatient medications. Will need to watch closely since she takes methotrexate and is immunosuppressed. She has had a flu and pneumonia vaccine (4) Anxiety Chronic F41.9 - ANXIETY DISORDER, UNSPECIFIED Comment/Plan: Continue outpatient medications - Plan Hopefully home when able to keep sats greater than 88%. Check ambulating O2 sats on oxygen tomorrow. Hopefully can begin discharge planning. Disposition Plan: Home Case Care Discussed with: Patient Education/Counseling Given To: Patient Education/Counseling Given Regarding: Diagnosis, Treatment, Prognosis, Follow Up , Disposition Plan Total Time: 45 minutes. Critical Care: No Couseling Time (>50% in counseling/coordination): No
[2016-08-18] MEDS: Albuterol/Ipratropium Neb 3 ML NEB NEB SCH ×4 (01:51→19:54)
[2016-08-18] MEDS: GUAIFEN 100 MG-DEXTROMETH 10 MG PER 5 ML PO SCH ×3 (05:16→16:58)
[2016-08-18 06:07] LABS: AUTOMATED BASOPHIL 0.9 % (0-2); AUTOMATED EOSINOPHIL 3.6 % (0-5); AUTOMATED LYMPH 16.7 % (17-44); AUTOMATED MONOCYTE 9.1 % (3-10); AUTOMATED NEUTROPHIL 69.7 % (45-76); MPV 7.8 fL (7.4-10.4)
[2016-08-18 06:49] LABS: BLOOD UREA NITROGEN 36 MG/DL (7-17); CALCIUM 9.1 MG/DL (8.4-10.2); CALCULATED OSMOLALITY 274 MOs/Kg (270-290); CHLORIDE 92 mEq/L (98-107); GLUCOSE 107 MG/DL (70-99); SODIUM LEVEL 138 mEq/L (137-146)
[2016-08-18] MEDS: BUDESONIDE 0.25 MG NEB NEB SCH ×2 (08:06→20:03)
[2016-08-18] MEDS: FUROSEMIDE 40 MG/4 ML VIAL IV SCH ×2 (08:23→16:54)
[2016-08-18] MEDS: TELMISARTAN 40 MG TAB PO SCH (08:23)
[2016-08-18] MEDS: TUSSIONEX 5 ML ORAL SYRINGE PO SCH ×2 (08:30→20:29)
[2016-08-18] MEDS: DULOXETINE 30 MG CAP PO SCH (08:30)
[2016-08-18] MEDS: METHOTREXATE SODIUM 2.5 MG TAB PO SCH (08:31)
[2016-08-18] MEDS: HYDROXYCHLOROQUINE 200 MG TAB PO SCH ×2 (08:31→20:29)
[2016-08-18] MEDS: Aspirin (Orange Enteric Coated) 325 mg tab PO SCH (08:31)
[2016-08-18] MEDS: HYDROCHLOROTHIAZIDE 12.5 MG CAP PO SCH (08:31)
[2016-08-18] MEDS: FOLIC ACID 1 MG TAB PO SCH (08:31)
[2016-08-18] MEDS: LEVOFLOXACIN 750 MG TAB PO SCH (16:58)
[2016-08-18] MEDS: ENOXAPARIN 40 MG/0.4 ML PFS SQ SCH (16:58)
[2016-08-18] MEDS ORDERED: GLUCAGON 1 MG VIAL SQ PRN (18:52)
[2016-08-18] MEDS ORDERED: DEXTROSE 25 GM/50 ML PFS IV PRN (18:52)
[2016-08-18] MEDS ORDERED: GLUCOSE (ORAL GEL) 15 GM TUBE PO PRN (18:52)
--- NOTE | 2016-08-18 18:55 | GENMEDPROG ---
Subjective Note: Patient in bed responsive follows commands. Still short of breath coughing producing fair amount thick sputum still tight in the chest and wheezy. Weak and fatigued. Notes Reviewed: Yes Events from last night noted and discussed with Clinical Staff Current Medication List: Reviewed Currently: Reports: Cough, Wheezing, LIM (improved slightly), SOB, Sputum, Tobacco Use/Hx, Reflux Sx, Ambulating (Minimally). Denies: Nausea and Vomiting , Abdominal Pain, Fever/Chills DVT Prophylaxis: Yes - Physical Examination Vital Signs and I&O: Last Vital Signs Temp 98.2 F 08/18/16 14:21 Pulse 78 08/18/16 14:21 Resp 18 08/18/16 14:21 BP 116/60 08/18/16 14:21 Pulse Ox 93 08/18/16 17:04 Oxygen Pulse Oxygen Saturation 93 O2 Device Nasal Cannula Oxygen Flow Rate 0.5 Fraction of Inspired Oxygen ( FIO2) Intake & Output 08/15/16 08/16/16 08/17/16 08/18/16 23:59 23:59 23:59 23:59 Intake Total 2023 1080 800 890 Output Total 4150 2150 2300 800 Balance -2126 -1070 -1500 90 Patient's weight 98.883 kg 98.203 kg 97.664 kg 98.061 kg General: Alert, Oriented x3, Cooperative, Mild distress (with cough), Obese HEENT: Normal, PERRLA, EOMI, Mucous membr. moist/pink. negative: Anicteric Sclera Neck: Non-tender, Limited range of motion. negative: Cervical Adenopathy Lymphatics: Normal (no adenopathy) Respiratory: Diminished, Rhonchi, Wheezes (B/L), Excursion (decreased excursion) Cardiovascular: Regular rate and rhythm, Normal S1, Normal S2, Murmurs, Good Pedal Pulses. negative: LE Edema GI: Normal bowel sounds, Soft, Non tender, No hepatospenomegaly Extremities/Musculoskeletal: Normal pulses. negative: Edema Skin: Warm,Dry and Intact, No rashes Neurological: Normal speech, Normal tone Psych/Mental Status: Appropriate, Normal Affect, Cooperative Lab/DI/Studies Reviewed: Last Vital Signs Temp 98.2 F 08/18/16 14:21 Pulse 78 08/18/16 14:21 Resp 18 08/18/16 14:21 BP 116/60 08/18/16 14:21 Pulse Ox 93 08/18/16 17:04 08/18/16 04:50 08/18/16 04:50 - Assessment (1) Acute respiratory failure with hypoxia Acute J96.01 - ACUTE RESPIRATORY FAILURE WITH HYPOXIA Comment/Plan: Continue O2 nebs and pulmonary toilet. Monitor pulmonary status. Repeat PA and lateral chest x-ray tomorrow. (2) Pneumonia Acute J18.9 - PNEUMONIA, UNSPECIFIED ORGANISM Comment/Plan: Continue IV antibiotic and mucolytics. Given significant bronchospasm with bronchorrhea will add IV steroids. (3) Rheumatoid arthritis Chronic M06.9 - RHEUMATOID ARTHRITIS, UNSPECIFIED Qualifiers: Rheumatoid arthritis location: multiple sites Comment/Plan: Continue home meds. (4) GERD (gastroesophageal reflux disease) Acute K21.9 - GASTRO-ESOPHAGEAL REFLUX DISEASE WITHOUT ESOPHAGITIS Qualifiers: Esophagitis presence: without esophagitis Qualified Code(s): K21.9 - Gastro -esophageal reflux disease without esophagitis Comment/Plan: Continue PPI Case Care Discussed with: Patient, Family, Nursing Staff, Cashier General Education/Counseling Given To: Patient Education/Counseling Given Regarding: Diagnosis, Treatment, Prognosis, Follow Up Total Time: 40 min . Critical Care: No Code: 27969 (12+)
[2016-08-18] MEDS: GUAIFENESIN 600 MG LA TAB PO SCH (20:28)
[2016-08-18] MEDS: METHYLPREDNISOLONE 125 MG/2 ML VIAL IV SCH (20:28)
[2016-08-19] MEDS: REGULAR INSULIN 100 UNITS/ML - 3 ML VIAL SQ SCH ×4 (00:02→18:44)
[2016-08-19] MEDS: Albuterol/Ipratropium Neb 3 ML NEB NEB SCH ×4 (01:30→20:07)
[2016-08-19] MEDS: METHYLPREDNISOLONE 125 MG/2 ML VIAL IV SCH ×3 (03:10→15:27)
[2016-08-19] MEDS: PANTOPRAZOLE 40 MG TAB PO SCH (05:16)
[2016-08-19] MEDS: BUDESONIDE 0.25 MG NEB NEB SCH ×2 (07:51→20:17)
[2016-08-19] MEDS: GUAIFENESIN 600 MG LA TAB PO SCH ×2 (08:27→22:32)
[2016-08-19] MEDS: FOLIC ACID 1 MG TAB PO SCH (08:27)
[2016-08-19] MEDS: Aspirin (Orange Enteric Coated) 325 mg tab PO SCH (08:27)
[2016-08-19] MEDS: TELMISARTAN 40 MG TAB PO SCH (08:27)
[2016-08-19] MEDS: DULOXETINE 30 MG CAP PO SCH (08:27)
[2016-08-19] MEDS: HYDROXYCHLOROQUINE 200 MG TAB PO SCH ×2 (08:28→22:34)
[2016-08-19] MEDS: FUROSEMIDE 40 MG/4 ML VIAL IV SCH ×2 (08:28→15:27)
[2016-08-19] MEDS: TUSSIONEX 5 ML ORAL SYRINGE PO SCH ×2 (08:34→22:30)
[2016-08-19 08:38] LABS: MPV 7.4 fL (7.4-10.4)
[2016-08-19 08:50] LABS: BLOOD UREA NITROGEN 32 MG/DL (7-17); CALCIUM 9.4 MG/DL (8.4-10.2); CALCULATED OSMOLALITY 270 MOs/Kg (270-290); CHLORIDE 94 mEq/L (98-107); GLUCOSE 125 MG/DL (70-99); SODIUM LEVEL 136 mEq/L (137-146)
[2016-08-19 09:17] LABS: SEG NEUTROPHIL 94 % (45-76)
--- NOTE | 2016-08-19 10:31 | DIRPT ---
CLINICAL DATA: Respiratory failure EXAM: CHEST 2 VIEW COMPARISON: 08/15/2016 FINDINGS: Study somewhat degraded by motion artifact. There is irregular thickening of the bronchovascular interstitium in the lung bases similar to the prior exam. No new lung consolidation or convincing edema. No pleural effusion or pneumothorax. Cardiac silhouette is normal in size. No mediastinal or hilar masses or evidence of adenopathy. Moderate to marked dextroscoliosis of the mid thoracic spine, stable. IMPRESSION: 1. Lung base findings are similar to the prior exam. This may reflect chronic bronchial wall thickening. Residual active bronchial inflammation should be considered in clinical setting. No convincing lobar pneumonia 2. No new lung abnormalities. Electronically Signed By: Maximilian Bradley M.D. On: 08/19/2016 10:28
[2016-08-19] MEDS: LEVOFLOXACIN 750 MG TAB PO SCH (15:28)
[2016-08-19] MEDS ORDERED: Medication Special Instructions SCH (17:00)
--- NOTE | 2016-08-19 17:49 | GENMEDPROG ---
Subjective Note: Patient in bed responsive oriented follows commands. Looks better and feels better. Breathing better. Still dyspneic with physical exertion, still coughing producing small amount of sputum no hemoptysis. Notes Reviewed: Yes Events from last night noted and discussed with Clinical Staff Current Medication List: Reviewed Currently: Reports: Cough, Wheezing, LIM (improved slightly), SOB, Sputum, Tobacco Use/Hx, Reflux Sx, Ambulating (Minimally). Denies: Nausea and Vomiting , Abdominal Pain, Fever/Chills DVT Prophylaxis: Yes - Physical Examination Vital Signs and I&O: Last Vital Signs Temp 98.3 F 08/19/16 13:19 Pulse 111 08/19/16 13:19 Resp 22 08/19/16 13:19 BP 127/62 08/19/16 13:19 Pulse Ox 93 08/19/16 13:19 Oxygen Pulse Oxygen Saturation 93 O2 Device Nasal Cannula Oxygen Flow Rate 1 Fraction of Inspired Oxygen ( FIO2) Intake & Output 08/16/16 08/17/16 08/18/16 08/19/16 23:59 23:59 23:59 23:59 Intake Total 9747 684 1574 620 Output Total 2150 2300 1400 1750 Balance -1070 -1500 -260 -1130 Patient's weight 98.203 kg 97.664 kg 98.061 kg General: Alert, Oriented x3, Cooperative, Mild distress (with cough), Obese HEENT: Normal, PERRLA, EOMI, Mucous membr. moist/pink. negative: Anicteric Sclera Neck: Non-tender, Normal Trachea alignment, Normal inspection, Limited range of motion. negative: Cervical Adenopathy Lymphatics: Normal (no adenopathy) Respiratory: Diminished, Rhonchi, Wheezes (B/L) Cardiovascular: Regular rate and rhythm, Normal S1, Normal S2, Murmurs, Good Pedal Pulses. negative: LE Edema GI: Normal bowel sounds, Soft, Non tender, No hepatospenomegaly, No masses, Obese Extremities/Musculoskeletal: Normal pulses. negative: Edema Skin: Warm,Dry and Intact, No rashes Neurological: Normal speech, Normal tone Psych/Mental Status: Appropriate, Normal Affect, Cooperative Patient Name: MELIDA WHITE LOC: [facility] : 1950 AGE: 66 Order Date:08/18/16 Date of Service: Report # [id number] Ord Physician: Lj Cordova MD Exam # [id number] Emergency Physician: Fer Adams DO Exam(s): [id number] RAD/DG CHEST 2V CLINICAL DATA: Respiratory failure EXAM: CHEST 2 VIEW COMPARISON: 08/15/2016 FINDINGS: Study somewhat degraded by motion artifact. There is irregular thickening of the bronchovascular interstitium in the lung bases similar to the prior exam. No new lung consolidation or convincing edema. No pleural effusion or pneumothorax. Cardiac silhouette is normal in size. No mediastinal or hilar masses or evidence of adenopathy. Moderate to marked dextroscoliosis of the mid thoracic spine, stable. IMPRESSION: 1. Lung base findings are similar to the prior exam. This may reflect chronic bronchial wall thickening. Residual active bronchial inflammation should be considered in clinical setting. No convincing lobar pneumonia 2. No new lung abnormalities. Electronically Signed By: Maximilian Bradley M.D. On: 08/19/2016 10:28 Electronically Signed By: Maximilian Bradley MD Electronically Signed Date/Time: Dictate Lab/DI/Studies Reviewed: Allergies cefaclor [From Ceclor] Allergy (Verified 08/11/16 17:40) Hives* phenazopyridine [From Pyridium] Allergy (Verified 08/11/16 17:40) Rash-Generalized Last Vital Signs Temp 98.3 F 08/19/16 13:19 Pulse 111 08/19/16 13:19 Resp 22 08/19/16 13:19 BP 127/62 08/19/16 13:19 Pulse Ox 93 08/19/16 13:19 08/19/16 07:46 08/19/16 07:46 Abnormal Lab Results 08/19/16 08/19/16 08/19/16 05:37 07:46 07:46 RBC 3.89 L Hct 35.5 L RDW 15.8 H Plt Count 416 H Seg Neuts % (Manual) 94 H Lymphocytes % (Manual) 5 L Absolute Neutrophils 9.49 H Absolute Lymphocytes 0.51 L Sodium 136 L Chloride 94 L BUN 32 H Glucose 125 H POC Capillary Glucose 135 H 08/19/16 12:15 RBC Hct RDW Plt Count Seg Neuts % (Manual) Lymphocytes % (Manual) Absolute Neutrophils Absolute Lymphocytes Sodium Chloride BUN Glucose POC Capillary Glucose 134 H - Assessment (1) Acute respiratory failure with hypoxia Acute J96.01 - ACUTE RESPIRATORY FAILURE WITH HYPOXIA Comment/Plan: Slow progress on maximal pulmonary therapy.. Weaned off oxygen as tolerated (2) Pneumonia Acute J18.9 - PNEUMONIA, UNSPECIFIED ORGANISM Comment/Plan: Continue IV antibiotic and mucolytics. Given significant bronchospasm with bronchorrhea will add IV steroids. (3) Rheumatoid arthritis Chronic M06.9 - RHEUMATOID ARTHRITIS, UNSPECIFIED Qualifiers: Rheumatoid arthritis location: multiple sites Comment/Plan: Continue home meds. Continue IV steroids (4) GERD (gastroesophageal reflux disease) Acute K21.9 - GASTRO-ESOPHAGEAL REFLUX DISEASE WITHOUT ESOPHAGITIS Qualifiers: Esophagitis presence: without esophagitis Qualified Code(s): K21.9 - Gastro -esophageal reflux disease without esophagitis Comment/Plan: Continue PPI Case Care Discussed with: Patient, Nursing Staff, Finger Cobbler Education/Counseling Given To: Patient Education/Counseling Given Regarding: Diagnosis, Treatment, Prognosis, Follow Up Total Time: 45 min . Critical Care: No Code: 26435 (12+)
[2016-08-19] MEDS: ENOXAPARIN 40 MG/0.4 ML PFS SQ SCH (18:32)
[2016-08-19] MEDS: METHYLPREDNISOLONE 40 MG/1 ML VIAL IV SCH (22:37)
[2016-08-20] MEDS: MAGIC MOUTHWASH 180 ML ORAL SUSP PO PRN ×2 (00:30→09:29)
[2016-08-20] MEDS: REGULAR INSULIN 100 UNITS/ML - 3 ML VIAL SQ SCH ×3 (01:03→13:33)
[2016-08-20] MEDS: Albuterol/Ipratropium Neb 3 ML NEB NEB SCH ×2 (01:29→08:05)
[2016-08-20 05:36] VITALS: BMI 40.5
[2016-08-20 05:37] VITALS: BP 139/63; PULSE 101; TEMP 97.9
[2016-08-20] MEDS: BUDESONIDE 0.25 MG NEB NEB SCH (08:07)
[2016-08-20 08:52] LABS: MPV 7.6 fL (7.4-10.4)
[2016-08-20 09:05] LABS: BLOOD UREA NITROGEN 48 MG/DL (7-17); CALCIUM 9.3 MG/DL (8.4-10.2); CALCULATED OSMOLALITY 281 MOs/Kg (270-290); CHLORIDE 95 mEq/L (98-107); GLUCOSE 126 MG/DL (70-99); SODIUM LEVEL 138 mEq/L (137-146)
[2016-08-20] MEDS: METHYLPREDNISOLONE 40 MG/1 ML VIAL IV SCH (09:21)
[2016-08-20] MEDS: FUROSEMIDE 40 MG/4 ML VIAL IV SCH (09:22)
[2016-08-20] MEDS: PANTOPRAZOLE 40 MG TAB PO SCH (09:22)
[2016-08-20] MEDS: GUAIFENESIN 600 MG LA TAB PO SCH (09:23)
[2016-08-20] MEDS: HYDROXYCHLOROQUINE 200 MG TAB PO SCH (09:23)
[2016-08-20] MEDS: FOLIC ACID 1 MG TAB PO SCH (09:25)
[2016-08-20] MEDS: TELMISARTAN 40 MG TAB PO SCH (09:25)
[2016-08-20] MEDS: Aspirin (Orange Enteric Coated) 325 mg tab PO SCH (09:25)
[2016-08-20] MEDS: DULOXETINE 30 MG CAP PO SCH (09:25)
[2016-08-20] MEDS: TUSSIONEX 5 ML ORAL SYRINGE PO SCH (09:32)
[2016-08-20 09:40] LABS: SEG NEUTROPHIL 89 % (45-76)
--- NOTE | 2016-08-20 10:31 | PCM.DCS92 ---
- Final/Secondary Discharge Diagnosis (1) Acute respiratory failure with hypoxia Acute J96.01 - ACUTE RESPIRATORY FAILURE WITH HYPOXIA Present on Admission: Yes Comment: Slow progress on maximal pulmonary therapy.. Weaned off oxygen as tolerated (2) Pneumonia Acute J18.9 - PNEUMONIA, UNSPECIFIED ORGANISM Present on Admission: Yes Comment: Continue po antibiotic and mucolytics, finish steroid taper (3) Rheumatoid arthritis Chronic M06.9 - RHEUMATOID ARTHRITIS, UNSPECIFIED Present on Admission: Yes multiple sites Comment: Continue home meds. Continue IV steroids (4) GERD (gastroesophageal reflux disease) Chronic K21.9 - GASTRO-ESOPHAGEAL REFLUX DISEASE WITHOUT ESOPHAGITIS Present on Admission: Yes without esophagitis K21.9 - Gastro-esophageal reflux disease without esophagitis Comment: Continue PPI Discharge Disposition: Home Discharge Condition: Improved Cognitive Discharge Status: Unimpaired Fuctional Discharge Status: Independent Physician Follow up/Referrals: Wes Ireland MD [Primary Care Provider] - One Week New Prescriptions: Albuterol/Ipratropium Neb [Duoneb] 3 ml NEB Q6H #60 nebu Levofloxacin [Levaquin] 750 mg PO DAILY #5 tablet Methylprednisolone [Medrol] 4 mg PO DAILY #1 tab.ds.pk Guaifenesin [Mucinex] 1,200 mg PO BID #20 tbmp.12hr Levalbuterol [Xopenex Hfa] 15 gm IH Q6 #2 inh O2 Device: Room Air Diet at Discharge: Heart Healthy, Low Salt, High Fiber Activity: As Tolerated Call Office For: Worsening Symptoms, Fever over 101 F Discontinue use of:: Alcohol, All Illegal Substances, All Types of Tobacco - DC Summary Notes Hospital Course Note:: Discharge summary on patient named MELIDA WHITE admitted to [facility] on 08/11/16 by Linda Fagan MD. Date of discharge is []. Patient has initially presented to emergency room on August 11 for evaluation of worsening difficulties breathing cough phlegm production and low-grade fevers. Please refer to the admission for further details. ED workup was undertaken patient was found hypoxic tachypneic and tachycardic. Chest x-ray showed bronchitic changes and left lower lobe infiltrate. Treatment with IV antibiotics with instituted along with nebulized bronchodilators and mucolytics. Outpatient regimen for chronic medical conditions was continued. Patient pulmonary status has very slowly but progressively improved and stabilized. Due to bronchorrhea and significant bronchospasm she required IV steroids. Repeated chest x-ray shows stability of chest findings. Her labs were monitored closely and remained within normal limits. Patient was gradually weaned off oxygen and her exercise pulse ox remained above 92%. She was gradually weaned off IV steroids as well. Her activity level was gradually advanced and by time of discharge patient is able to ambulate freely with minimal exertional dyspnea. Again her pulmonary status has improved and stabilized by the time of discharge wheezing has completely resolved. It was felt that by August 20 patient has reached maximum benefit of inpatient therapy and in clinically improved condition she has been discharged home to the care of the family and her PCP. Total Time: 45 min. Code: 21155 (>30min.) - Physical Exam Vital Signs: Last Vital Signs Temp 97.9 F 08/20/16 05:35 Pulse 101 08/20/16 05:35 Resp 18 08/20/16 05:35 BP 139/63 08/20/16 05:35 Pulse Ox 94 08/20/16 08:00 Oxygen Pulse Oxygen Saturation 94 O2 Device Nasal Cannula Oxygen Flow Rate 1 Fraction of Inspired Oxygen ( 1 FIO2) Constitutional: Alert (Awake), No apparent distress Oriented to: Time, Person, Place - HEENT Head: Normal ( normocephalic) Eye: Normal (PERRL, EOMI, Sclera white) Oropharynx: Normal (Pharynx:Moist without exudate,Gums-no swelling) ENT EAC: Normal TMJ: Normal Nose: No Symptoms Reported (septum midline) - Respiratory/Cardiovascular Respiratory: Diminished, Rhonchi, Wheezes (B/L) Cardiovascular: Normal, Systolic murmur - GI Auscultation: Normal (NABS) Palpation: Normal (Soft,No rebound or guarding, non distended) Tenderness: Non tender Hendrickson's Sign: Negative Rectal Exam: Deferred - Exam Deferred: Yes - Musculoskeletal Back: Normal (Non-Tender) Extremities: Normal (Normal tone, Pulses 2+ No cyanosis or edema, FROM) - Integumentary Skin: Normal, Warm, Dry Lymphatics: Normal (no adenopathy) - Neurologic Memory Impaired: Normal Motor Function: Normal Cranial Nerve: Normal Cerebellar: Normal Mood Description: Normal Perception: Normal - Other Exam Other Exam Findings: Allergies cefaclor [From Ceclor] Allergy (Verified 08/11/16 17:40) Hives* phenazopyridine [From Pyridium] Allergy (Verified 08/11/16 17:40) Rash-Generalized 08/20/16 07:26 08/20/16 07:26 Last Vital Signs Temp 97.9 F 08/20/16 05:35 Pulse 101 08/20/16 05:35 Resp 18 08/20/16 05:35 BP 139/63 08/20/16 05:35 Pulse Ox 94 08/20/16 08:00 Abnormal Lab Results 08/19/16 08/19/16 08/20/16 12:15 18:41 01:08 WBC RBC Hgb Hct RDW Plt Count Seg Neuts % (Manual) Lymphocytes % (Manual) Absolute Neutrophils Chloride BUN Glucose POC Capillary Glucose 134 H 127 H 152 H 08/20/16 08/20/16 08/20/16 05:39 07:26 07:26 WBC 15.0 H RBC 3.77 L Hgb 11.4 L Hct 34.5 L RDW 16.2 H Plt Count 444 H Seg Neuts % (Manual) 89 H Lymphocytes % (Manual) 9 L Absolute Neutrophils 13.35 H Chloride 95 L BUN 48 H Glucose 126 H POC Capillary Glucose 120 H Discharge Home Medication List Aspirin [Aspirin EC] 325 mg PO DAILY 08/11/16 [History Confirmed 08/11/16] Duloxetine [Cymbalta] 90 mg PO DAILY 08/11/16 [History Confirmed 08/11/16] Folic Acid 1 mg PO DAILY 08/11/16 [History Confirmed 08/11/16] Hydroxychloroquine Sulfate 200 mg PO BID 08/11/16 [History Confirmed 08/11/16] Methotrexate Sodium [Methotrexate] 7 tabs PO .WEEKLY 08/11/16 [History Confirmed 08/11/16] Telmisartan/Hydrochlorothiazid [Micardis Hct 80-12.5 mg Tablet] 1 each PO DAILY 08/11/16 [History Confirmed 08/11/16] Albuterol/Ipratropium Neb [Duoneb] 3 ml NEB Q6H #60 nebu 08/20/16 [Rx] Guaifenesin [Mucinex] 1,200 mg PO BID #20 tbmp.12hr 08/20/16 [Rx] Levalbuterol [Xopenex Hfa] 15 gm IH Q6 #2 inh 08/20/16 [Rx] Levofloxacin [Levaquin] 750 mg PO DAILY #5 tablet 08/20/16 [Rx] Methylprednisolone [Medrol] 4 mg PO DAILY #1 tab.ds.pk 08/20/16 [Rx] New Discharge Medications (Rx) Albuterol/Ipratropium Neb [Duoneb] 3 ml NEB Q6H #60 nebu 08/20/16 [Rx] Guaifenesin [Mucinex] 1,200 mg PO BID #20 tbmp.12hr 08/20/16 [Rx] Levalbuterol [Xopenex Hfa] 15 gm IH Q6 #2 inh 08/20/16 [Rx] Levofloxacin [Levaquin] 750 mg PO DAILY #5 tablet 08/20/16 [Rx] Methylprednisolone [Medrol] 4 mg PO DAILY #1 tab.ds.pk 08/20/16 [Rx] Home Medications Aspirin [Aspirin EC] 325 mg PO DAILY 08/11/16 Duloxetine [Cymbalta] 90 mg PO DAILY 08/11/16 Folic Acid 1 mg PO DAILY 08/11/16 Hydroxychloroquine Sulfate 200 mg PO BID 08/11/16 Methotrexate Sodium [Methotrexate] 7 tabs PO .WEEKLY 08/11/16 Telmisartan/Hydrochlorothiazid [Micardis Hct 80-12.5 mg Tablet] 1 each PO DAILY 08/11/16 Albuterol/Ipratropium Neb [Duoneb] 3 ml NEB Q6H #60 nebu 08/20/16 Guaifenesin [Mucinex] 1,200 mg PO BID #20 tbmp.12hr 08/20/16 Levalbuterol [Xopenex Hfa] 15 gm IH Q6 #2 inh 08/20/16 Levofloxacin [Levaquin] 750 mg PO DAILY #5 tablet 08/20/16 Methylprednisolone [Medrol] 4 mg PO DAILY #1 tab.ds.pk 08/20/16 Microbiology 08/11/16 12:42 Blood Blood Culture - Final No growth aerobically or anaerobically at 120 hours. NORMAL VALUE = No growth 08/11/16 20:10 Sputum Gram Stain - Final 08/11/16 20:10 Sputum Sputum Culture - Final Normal oral/respiratory didier present
== END 2016-08-20 14:54 | disposition home or self-care (01) | DRG 193 ==
LOC: ED 12:33 → MPS3 16:23
PROVIDERS: ADMIT Family Medicine; ATTEND Hospitalist
PROC: 039B3ZZ Drainage of Right Radial Artery, Percutaneous Approach (ICD-10-PCS; principal; 2016-08-11)
DX: J18.9 Pneumonia, unspecified organism (principal); J96.01 Acute respiratory failure with hypoxia; M06.9 Rheumatoid arthritis, unspecified; K21.9 Gastro-esophageal reflux disease without esophagitis; I10 Essential (primary) hypertension; F41.8 Other specified anxiety disorders; Z88.8 Allergy status to other drugs, medicaments and biological substances; Z79.82 Long term (current) use of aspirin; Z79.899 Other long term (current) drug therapy; Z87.891 Personal history of nicotine dependence
CPT/HCPCS: 36415; 36600; 71010; 71020; 80048; 80053; 82803; 82962; 83735; 85007; 85025; 85027; 87040; 87070; 87205; 93005; 94640; 96365; 96372; 98960; 99283; G0237; J1650; J1940; J1956; J2920; J2930; J3490; J7620; J8610